=== PATIENT | female | born 1940 | race Caucasian/White ===

== ENCOUNTER → 2016-06-12 | Outpatient (CLI) | payer MEDICARE, BC ==
--- NOTE | 2016-06-12 13:38 | REPMRS ---
Patient History The patient states she had a clinical breast exam in 2016. Patient is postmenopausal. Family history of breast cancer in maternal aunt. Took unspecified hormones for 26 years. Digital Mammo Screening Bilat: June 12, 2016 - Exam #: [id number] Bilateral CC and MLO view(s) were taken. Technologist: Mara Molina, Technologist Prior study comparison: April 22, 2015, digital bilateral screening mammo, performed at [facility]. March 30, 2014, bilateral bilat screen digital mammo, performed at [facility] ([facility] FINDINGS: There are scattered fibroglandular densities. There has been no change in the appearance of the mammogram from the prior studies. There is a mild amount of residual fibroglandular tissue which is fairly symmetric. There is no interval development of dominant mass, architectural distortion, or clustered microcalcification suggestive of malignancy. ASSESSMENT: BI-RADS/ACR category 1 mammogram. Negative. Recommendation Routine screening mammogram in 1 year (for women over age 40). This mammogram was interpreted with the aid of an FDA-approved computer-aided dectection system. Electronically Signed By: Giovani Molina MD 06/12/16 [id number]
== END ==
LOC: M RAD 11:13
PROVIDERS: ATTEND Nurse Practitioner
DX: Z12.31 Encounter for screening mammogram for malignant neoplasm of breast (principal); Z78.0 Asymptomatic menopausal state; Z92.0 Personal history of contraception

== ENCOUNTER → 2017-06-11 | Outpatient (CLI) | payer MEDICARE, BC | LOC: M WHC 12:47 | DX: Z12.31 Encounter for screening mammogram for malignant neoplasm of breast (principal); M85.9 Disorder of bone density and structure, unspecified | CPT/HCPCS: 77067 ==

== ENCOUNTER 2018-01-06 15:04 | Emergency (ER) | payer MEDICARE, BC ==
[2018-01-06 16:05] LABS: BASO % 0.4 % (0.0-1.0); EOS # 0.2 10^3/uL (0.0-0.50); EOS % 2.5 % (0.0-3.0); HEMATOCRIT 41.1 % (36.0-47.0); HEMOGLOBIN 13.4 g/dl (12.0-15.5); IMMATURE GRANULOCYTE % 0.4 % (0-3.0); MEAN CORPUSCULAR HEMOGLOBIN 30.1 pg (27.0-33.0); MEAN CORPUSCULAR HGB CONC 32.6 g/dl (32.0-36.5); MEAN CORPUSCULAR VOLUME 92.4 fl (80.0-96.0); MONO # 0.7 10^3/uL (0.0-0.8); MONO % 8.9 % (0.0-5.0); NEUTROPHILS # 5.1 10^3/uL (1.8-7.7); NEUTROPHILS % 62.8 % (36.0-66.0); PLATELET COUNT, AUTOMATED 260 10^3/uL (150-450); RED BLOOD COUNT 4.45 10^6/uL (4.00-5.40); WHITE BLOOD COUNT 8.1 10^3/uL (4.0-10.0)
[2018-01-06 16:27] LABS: ANION GAP 10 MEQ/L (8-16); BLOOD UREA NITROGEN 17 MG/DL (7-18); CARBON DIOXIDE LEVEL 28 MEQ/L (21-32); CHLORIDE LEVEL 103 MEQ/L (98-107); CREATININE FOR GFR 0.72 MG/DL (0.55-1.30); GLOMERULAR FILTRATION RATE > 60.0 (>39); GLUCOSE, FASTING 96 MG/DL (70-100); POTASSIUM SERUM 3.8 MEQ/L (3.5-5.1); SODIUM LEVEL 141 MEQ/L (136-145); URIC ACID 4.3 MG/DL (2.6-6.0)
[2018-01-06 16:39] LABS: ERYTHROCYTE SEDIMENTATION RATE 18 mm/hr (0-30)
[2018-01-06] MEDS: LIDOCAINE 2% MDV 20 ML VIAL SC (17:35)
== END 2018-01-06 18:44 | disposition home or self-care (01) ==
LOC: M ED 15:04
DX: M25.472 Effusion, left ankle (principal); R22.42 Localized swelling, mass and lump, left lower limb; I10 Essential (primary) hypertension; G62.9 Polyneuropathy, unspecified; E78.9 Disorder of lipoprotein metabolism, unspecified; E07.9 Disorder of thyroid, unspecified; M10.9 Gout, unspecified; Z79.899 Other long term (current) drug therapy; Z79.890 Hormone replacement therapy
CPT/HCPCS: 93005

== ENCOUNTER → 2018-06-29 | Outpatient (CLI) | payer MEDICARE, BC, OTHER ==
[~2018-06-29] MED LIST: ALLO100T; ALLO10TA PO; ATEN50TA2; ATEN50TA9 PO; ATOR1TAB19; ATOR1TAB19 PO; GABA-843; GABA-843 PO; LEVO100T5; PRED10TA2 PO; SYNT100T PO
--- NOTE | 2018-06-29 11:26 | REPMRS ---
Patient History The patient states she had a clinical breast exam in 2018. Family history of breast cancer in maternal aunt. Took unspecified hormones for 26 years. 3D TOMOSYNTHESIS WAS PERFORMED. Digital Mammo Screening Bilat: June 29, 2018 - Exam #: [id number] Bilateral CC and MLO view(s) were taken. Technologist: Mara Molina, Technologist Prior study comparison: June 11, 2017, digital woman screen mammo, performed at [facility]. June 12, 2016, bilateral digital mammo screening bilat performed at [facility]. FINDINGS: The breast tissue is heterogeneously dense. This may lower the sensitivity of mammography. There is a fairly symmetric fibroglandular pattern in both breasts. There has been no interval development of masses, areas of architectural distortion or clusters of microcalcifications typical of malignancy. No significant changes when compared with prior studies. Assessment: BI-RADS/ACR category 2 mammogram. Benign Findings. Recommendation Routine screening mammogram of both breasts in 1 year (for women over age 40). This mammogram was interpreted with the aid of an FDA-approved computer-aided dectection system. Electronically Signed By: Giovani Molina MD 06/29/18 [id number]
== END ==
LOC: M RAD 10:12
PROVIDERS: ATTEND Nurse Practitioner
DX: Z12.31 Encounter for screening mammogram for malignant neoplasm of breast (principal); Z80.3 Family history of malignant neoplasm of breast

== ENCOUNTER → 2019-07-03 | Outpatient (CLI) | payer MEDICARE, BC, OTHER ==
--- NOTE | 2019-07-03 13:41 | REP ---
BILATERAL SCREENING DIGITAL MAMMOGRAM WITH 3D TOMOSYNTHESIS: There are no palpable abnormalities or other breast complaints. The the patient states she had a clinical breast examination May,. The [facility] Lifetime Breast Cancer Risk Score is: 2.7% . Comparison is 03/30/2014. The breasts are heterogeneously dense, which could obscure small masses. There is no dominant mass, micro calcific cluster or architectural distortion that would indicate malignancy. There are benign calcifications. There are no additional findings on 3D tomosynthesiss. There is no change from the prior study. Impression: BIRADS/ACR category 2 mammogram. Findings. Recommendation: Routine annual screening mammography. Because of the increased breast density, annual adjunctive breast MRI in addition to screening mammography is recommended. These can be performed at alternating six month intervals. This mammogram was interpreted with the aid of a FDA approved computer-aided detection system. A. Negative mammogram reports should not delay biopsy if a dominant or clinically suspicious mass is present. B. Not all breast cancers are identified by mammography or tomosynthesis. C. Adenosis and dense breasts may obscure an underlying neoplasm. Patient letter M1 dense breasts. Electronically Signed by Giovani Nava MD 07/03/2019 01:33 P
--- NOTE | 2019-07-06 14:56 | DEXA ---
AP SPINE L1 - L4 1.233 0.3 2.1 LT FEMUR TOTAL 0.899 -0.9 -1.1 LT NECK 0.944 -0.7 -1.5 RT FEMUR TOTAL 0.902 -0.8 1.1 RT NECK 0.915 -0.9 1.2 TOTAL BODY TOTAL OTHER COMMENTS: Normal bone densitometry of the spine and hips. The density of the spine is increased 5.8% since the initial exam on 01/18/2007. The spine density has decreased 3.3% since the most recent exam on 06/11/2017. The density of the left hip has decreased 4.3% since the initial exam on 01/18/2007. The density of the left hip has decreased 3.1% since the most recent exam on 06/11/2017. The density of the right hip has decreased 5.8% since the initial exam on 01/18/2007. The density of the right hip has decreased 3.4% since the most recent exam on 06/11/2017. FOLLOW-UP: Recommendation for the next bone density exam: 5 years. SABINA
== END ==
LOC: M WHC 12:49
PROVIDERS: ATTEND Nurse Practitioner
DX: Z12.31 Encounter for screening mammogram for malignant neoplasm of breast (principal); M85.80 Other specified disorders of bone density and structure, unspecified site; R92.2 Inconclusive mammogram; R92.1 Mammographic calcification found on diagnostic imaging of breast

== ENCOUNTER → 2020-07-04 | Outpatient (CLI) | payer MEDICARE, BC ==
[~2020-07-04] MED LIST changes: +GABA-282; +GABA-282 PO; -GABA-843; -GABA-843 PO
--- NOTE | 2020-07-04 13:44 | REPMRS ---
Patient History The patient states she had a clinical breast exam in May 2020. Family history of breast cancer in maternal aunt. Took unspecified hormones for 26 years. Digital Woman Screen Mammo: July 04, 2020 - Exam #: [id number] Bilateral CC and MLO view(s) were taken. Technologist: RT Shelli Prior study comparison: July 03, 2019, bilateral digital woman screen mammo performed at [facility]. June 29, 2018, bilateral digital mammo screening bilat, performed at [facility]. June 11, 2017, digital woman screen mammo performed at [facility]. FINDINGS: There are scattered fibroglandular densities. The [employer] volumetric breast density category is:B. There has been no change in the appearance of the mammogram from the prior studies. There is a mild amount of scattered fibroglandular density which is fairly symmetric. There is no interval development of dominant mass, architectural distortion, or grouped microcalcification suggestive of malignancy. 3-D tomosynthesis shows no additional findings. Assessment: BI-RADS/ACR category 1 mammogram. Negative Mammogram. Recommendation Routine screening mammogram of both breasts in 1 year (for women over age 40). This patient's [facility] Lifetime Breast Cancer Risk is estimated at 2.3 %. This mammogram was interpreted with the aid of an FDA-approved computer-aided dectection system. Electronically Signed By: Villa Venegas MD 07/04/20 [id number]
== END ==
LOC: M WHC 12:55
PROVIDERS: ATTEND Nurse Practitioner
DX: Z12.31 Encounter for screening mammogram for malignant neoplasm of breast (principal)

== ENCOUNTER → 2021-08-13 | Outpatient (CLI) | payer MEDICARE, BC, OTHER | LOC: M WHC 12:27 | PROVIDERS: ATTEND Family Medicine | DX: Z12.31 Encounter for screening mammogram for malignant neoplasm of breast (principal); M85.88 Other specified disorders of bone density and structure, other site; Z92.29 Personal history of other drug therapy ==

== ENCOUNTER → 2021-11-25 | Outpatient (CLI) | payer MEDICARE, BC, OTHER ==
[~2021-11-25] MED LIST changes: +ISOVUE-300 61% 50ML VIAL As Ordered ONE; +LIDOCAINE 1% MDV 20ML VIAL As Ordered ONE; +TRIAMCINOLONE ACETONIDE SUSP 40 MG/ML VIAL (J3301) As Ordered ONE
== END ==
LOC: M RADPRO 13:11
PROVIDERS: ATTEND Orthopaedic Surgery
DX: M16.12 Unilateral primary osteoarthritis, left hip (principal)
CPT/HCPCS: 20610; 76000; J3301; Q9967

== ENCOUNTER → 2021-12-05 | Outpatient (REF) | payer MEDICARE, BC, OTHER ==
[~2021-12-05] MED LIST changes: -ISOVUE-300 61% 50ML VIAL As Ordered ONE; -LIDOCAINE 1% MDV 20ML VIAL As Ordered ONE; -TRIAMCINOLONE ACETONIDE SUSP 40 MG/ML VIAL (J3301) As Ordered ONE
== END ==
LOC: M LAB REF 16:17
PROVIDERS: ATTEND Physician Assistant
DX: D23.121 Other benign neoplasm of skin of left upper eyelid, including canthus (principal)

== ENCOUNTER → 2022-06-05 | Outpatient (CLI) | payer MEDICARE, BC, OTHER | LOC: M PLAIMG 13:56 | PROVIDERS: ATTEND Orthopaedic Surgery | DX: M16.12 Unilateral primary osteoarthritis, left hip (principal) ==